=== PATIENT | male | born 2000 | race Caucasian/White ===

== ENCOUNTER 2019-02-04 12:49 | Emergency (ER) | payer SELFPAY ==
[2019-02-04] MEDS ORDERED: Ondansetron ODT 4 MG TAB ONE ×2 (13:36→13:39)
[2019-02-04] MEDS ORDERED: Ibuprofen 200 MG TAB ONE (13:36)
== END 2019-02-04 14:04 | disposition home or self-care (01) ==
LOC: ERS 12:49
DX: J10.1 Influenza due to other identified influenza virus with other respiratory manifestations (principal); M54.5 Low back pain
CPT/HCPCS: 87081; 87430; 87804; 99283; Q0162